=== PATIENT | female | born 1975 ===

== ENCOUNTER 2016-09-30 13:51 | Emergency (ER) | payer OTHER ==
[2016-09-30 14:00] VITALS: BP 144/93; PULSE 93; RESP 20; TEMP 98.4; O2SAT 98
--- NOTE | 2016-09-30 14:12 | ED PDOC ---
Upper Extremity Pain/Injury Time Seen by Provider: 09/30/16 14:01 Chief Complaint (Nursing): Upper Extremity Problem/Injury Chief Complaint (Provider): Right Elbow Injury History Per: Patient History/Exam Limitations: no limitations Current Symptoms Are (Timing): Still Present Additional Complaint(s): 14:01 Didi Benitez is a 41 year old female with no past medical history that presents to the ED with a chief complaint of non-radiating, persistent right elbow pain. Patient states that she hit her right elbow on a metal bin, and took Motrin in an attempt to relieve her pain, but that it has provided her with no relief. She reports that the pain is worsened when she does lifting of any kind, as well as when she touches the area. PMD: None Past Medical History Reviewed: Historical Data, Nursing Documentation, Vital Signs Vital Signs: Last Vital Signs Temp 98.4 F 09/30/16 13:58 Pulse 93 H 09/30/16 13:58 Resp 20 09/30/16 13:58 BP 144/93 H 09/30/16 13:58 Pulse Ox 98 09/30/16 13:58 - Medical History PMH: No Chronic Diseases - Family History Family History: States: No Known Family Hx - Home Medications Home Medications: Ambulatory Orders Medication Instructions Recorded No Known Home Med 09/30/16 - Allergies Allergies/Adverse Reactions: Allergies Allergy/AdvReac Type Severity Reaction Status Date / Time No Known Allergies Allergy Verified 09/30/16 13:58 Review of Systems Musculoskeletal: Positive for: Arm Pain (right elbow pain) Physical Exam - Reviewed Nursing Documentation Reviewed: Yes Vital Signs Reviewed: Yes - Physical Exam Appears: Positive for: Non-toxic, No Acute Distress Head Exam: Positive for: ATRAUMATIC, NORMOCEPHALIC Skin: Positive for: Normal Color, Warm Eye Exam: Positive for: Normal appearance Extremity: Positive for: Normal ROM (not resisting, full range of motion of right wrist and shoulder), Tenderness (tenderness to palpation of olecranon). Negative for: Deformity Neurologic/Psych: Positive for: Alert, director style II-XII, Oriented. Negative for: Motor/Sensory Deficits - ECG O2 Sat by Pulse Oximetry: 98 (RA) Pulse Ox Interpretation: Normal Medical Decision Making Medical Decision Makin:01 Initial Impression: Bursitis of Right Elbow Initial Plan: * X-Ray Right Elbow * Reevaluation * normal impressio of elbow. most liekly with bursitis. advised to take motrin for pain and f/u wtih orthopedics. Scribe Attestation: Documented by Pao Feldman, acting as a scribe for Sammie Lai PA-C. Provider Scribe Attestation: All medical record entries made by the Scribe were at my direction and personally dictated by me. I have reviewed the chart and agree that the record accurately reflects my personal performance of the history, physical exam, medical decision making, and the department course for this patient. I have also personally directed, reviewed, and agree with the discharge instructions and disposition Disposition - Clinical Impression Clinical Impression: Elbow contusion - Patient ED Disposition Is Patient to be Admitted: No Counseled Patient/Family Regarding: Studies Performed, Diagnosis, Need For Followup - Disposition Referrals: [facility] [place] [Outside] Disposition: Routine/Home Disposition Time: 14:34 Condition: STABLE Instructions: Elbow Bursitis (ED) Print Language: LITHUANIAN
--- NOTE | 2016-09-30 15:05 | RAD ---
PROCEDURE: Right elbow Radiographs. HISTORY: injury COMPARISON: None. FINDINGS: BONES: No definite fracture. JOINTS: Normal. No dislocation. SOFT TISSUES: Normal. OTHER FINDINGS: None. IMPRESSION: No definite fracture.
== END 2016-09-30 14:40 | disposition home or self-care (01) ==
LOC: H.ER 13:51
DX: S50.01XA Contusion of right elbow, initial encounter (principal); W22.8XXA Striking against or struck by other objects, initial encounter; Y92.89 Other specified places as the place of occurrence of the external cause

== ENCOUNTER 2016-11-21 10:47 | Emergency (ER) | payer OTHER ==
[2016-11-21 11:08] VITALS: BP 127/87; PULSE 88; RESP 20; TEMP 98.3; O2SAT 98
--- NOTE | 2016-11-21 12:32 | ED PDOC ---
HPI: General Adult Time Seen by Provider: 11/21/16 11:01 Chief Complaint (Nursing): Flu-like Symptoms History Per: Patient Additional Complaint(s): Pt. states for the past 3 days she's had cough, congestion, and sore throat along with fever. Denies sick contacts, recent travel, hemoptysis, chest pain, SOB, N/V/D, abdominal pain. Past Medical History Reviewed: Historical Data, Nursing Documentation, Vital Signs Vital Signs: Last Vital Signs Temp 98.3 F 11/21/16 11:06 Pulse 88 11/21/16 11:06 Resp 20 11/21/16 11:06 BP 127/87 11/21/16 11:06 Pulse Ox 98 11/21/16 12:33 - Surgical History Surgical History: Cholecystectomy - Family History Family History: States: No Known Family Hx - Immunization History Hx Tetanus Toxoid Vaccination: No Hx Influenza Vaccination: No Hx Pneumococcal Vaccination: No - Home Medications Home Medications: Ambulatory Orders Medication Instructions Recorded Benzonatate [Tessalon Perle] 100 mg PO Q8 PRN #30 capsule 11/21/16 Fluticasone Propionate [Flonase] 2 spr NS DAILY PRN #1 bottle 11/21/16 Naproxen [Naprosyn] 500 mg PO BID PRN #30 tab 11/21/16 - Allergies Allergies/Adverse Reactions: Allergies Allergy/AdvReac Type Severity Reaction Status Date / Time No Known Allergies Allergy Verified 09/30/16 13:58 Review of Systems ROS Statement: Except As Marked, All Systems Reviewed And Found Negative Constitutional: Positive for: Fever ENT: Positive for: Nose Congestion, Throat Pain Respiratory: Positive for: Cough Physical Exam - Physical Exam Appears: Positive for: Well, Non-toxic, No Acute Distress Skin: Positive for: Normal Color, Warm. Negative for: Rash Eye Exam: Positive for: EOMI, Normal appearance, PERRL ENT: Positive for: TM Is/Are (WNL b/l), Pharyngeal Erythema. Negative for: Sinus Pain/Drainage, Tonsillar Exudate, Tonsillar Swelling Neck: Positive for: Normal, Painless ROM Cardiovascular/Chest: Positive for: Regular Rate, Rhythm Respiratory: Positive for: Normal Breath Sounds. Negative for: Crackles, Rales , Rhonchi, Wheezing, Respiratory Distress Gastrointestinal/Abdominal: Positive for: Normal Exam, Soft. Negative for: Tenderness, Organomegaly Back: Positive for: Normal Inspection. Negative for: L CVA Tenderness, R CVA Tenderness Extremity: Positive for: Normal ROM Neurologic/Psych: Positive for: Alert, Oriented - ECG O2 Sat by Pulse Oximetry: 98 - Progress ED Course And Treament: Rapid strep: negative. Disposition - Clinical Impression Clinical Impression: Viral syndrome, URI (upper respiratory infection) - Patient ED Disposition Is Patient to be Admitted: No - Disposition Disposition: Routine/Home Disposition Time: 13:20 Condition: STABLE Prescriptions: Benzonatate [Tessalon Perle] 100 mg PO Q8 PRN #30 capsule PRN Reason: Cough Fluticasone Propionate [Flonase] 2 spr NS DAILY PRN #1 bottle PRN Reason: Allergy Symptoms Naproxen [Naprosyn] 500 mg PO BID PRN #30 tab PRN Reason: Pain Instructions: Upper Respiratory Infection (ED) Print Language: AZERI
== END 2016-11-21 13:39 | disposition home or self-care (01) ==
LOC: H.ER 10:47
DX: J06.9 Acute upper respiratory infection, unspecified (principal); B34.9 Viral infection, unspecified; J02.9 Acute pharyngitis, unspecified